=== PATIENT | male | born 1955 | race African-American/Black ===

== ENCOUNTER 2018-11-29 06:17 | Day surgery (SDC) | payer MEDICARE ==
[~2018-11-29 06:17] MED LIST: ANCEF/STERILE WATER 2 GM/20 ML 2 GM/20 ML SYRINGE IV NR; NACL 0.9% 1000 ML 1,000 ML IV SCH
[2018-11-29] MEDS ORDERED: PAPAVERINE ONE (07:32)
[2018-11-29] MEDS ORDERED: PROTAMINE SULFATE ONE (07:32)
[2018-11-29] MEDS ORDERED: XYLOCAINE 1%/ EPI 1:100,000 INFILTRATI ONE (07:33)
[2018-11-29] MEDS ORDERED: MARCAINE-EPI 0.5%-1:200,000 INFILTRATI ONE ×2 (07:33→09:00)
[2018-11-29] MEDS ORDERED: NACL 0.9% 500 ML 500 ML ONE (07:33)
[2018-11-29] MEDS ORDERED: GELFOAM TP ONE ×2 (07:33→09:00)
[2018-11-29] MEDS ORDERED: HEPARIN 10,000 UNITS/10 ML ONE (07:33)
--- NOTE | 2018-11-29 07:33 | Anesthesia Day of Surgery ---
Anesthesia Day of Surgery - Day of Surgery Patient Examined: Yes Patient H&P Reviewed: Yes Patient is NPO: Yes
[2018-11-29] MEDS ORDERED: NITROGLYCERIN SYRINGE 3 ML ONE (07:34)
[2018-11-29] MEDS ORDERED: SODIUM BICARBONATE ONE (07:34)
[2018-11-29] MEDS ORDERED: RIFADIN ONE ×2 (07:34→09:29)
--- NOTE | 2018-11-29 07:41 | Anesthesia Consultation ---
Anesthesia Consult and Med Hx Date of service: 11/29/18 - Airway Anesthetic Teeth Evaluation: Chipped ROM Head & Neck: Adequate Mental/Hyoid Distance: Adequate Mallampati Class: Class III Intubation Access Assessment: Possibly Difficult - Pre-Operative Health Status ASA Pre-Surgery Classification: ASA3 Proposed Anesthetic Plan: General - Pulmonary Hx Smoking: No Hx Asthma: No SOB: No COPD: No Hx Pneumonia: No Hx Sleep Apnea: No - Cardiovascular System Hx Hypertension: Yes Hx Coronary Artery Disease: No Hx Heart Attack/AMI: No Hx Angina: No Hx Percutaneous Transluminal Coronary Angioplasty (PTCA): No Hx Pacemaker: No Hx Internal Defibrillator: No Hx Valvular Heart Disease: No Hx Heart Murmur: No Hx Peripheral Vascular Disease: No - Central Nervous System Hx Seizures: No CVA: Yes (2005. [facility]IC) Hx Psychiatric Problems: No - Gastrointestinal Hx Gastroesophageal Reflux Disease: Yes (Mild) - Endocrine Hx Renal Disease: Yes Hx End Stage Renal Disease: Yes (Last HD yessterday) - Other Systems Hx Cancer: No
[2018-11-29 07:43] LABS: Mean Corpuscular HGB Conc 31 % (32-34); Mean Corpuscular Volume 103 fl (84-94); Platelet Count 173 K/mm3 (140-440); Red Cell Distribution Width 19.3 % (13.2-15.2)
[2018-11-29] MEDS ORDERED: DIPRIVAN 10 MG/ML IV ONE (07:45)
[2018-11-29] MEDS ORDERED: SUBLIMAZE ONE (07:45)
[2018-11-29 07:48] LABS: Calcium 8.9 mg/dL (8.4-10.2)
[2018-11-29] MEDS ORDERED: XYLOCAINE MPF 2% ONE (08:49)
[2018-11-29] MEDS ORDERED: ZOFRAN ONE (08:49)
[2018-11-29] MEDS ORDERED: ROBINUL ONE (08:49)
[2018-11-29] MEDS ORDERED: NEO SYNEPHRINE/NS Syringe(OR USE) IV ONE (08:49)
[2018-11-29] MEDS ORDERED: NACL 0.9% IR ONE ×2 (09:00→09:29)
[2018-11-29] MEDS ORDERED: HEPARIN 10,000 UNITS/10 ML 2,000 UNIT in NACL 0.9% 500 ML 500 ML IR ONE (09:27)
[2018-11-29] MEDS ORDERED: NACL 0.9% 1000 ML ONE (09:29)
[2018-11-29] MEDS ORDERED: RIFADIN IR ONE (09:29)
[2018-11-29 09:54] LABS: Myelocytes # (Manual) 0.1 K/mm3; Promyelocytes # (Manual) 0.1 K/mm3; Total Cells Counted 100
[2018-11-29 09:55] LABS: Anisocytosis 2+; Ovalocytes 1+; Platelet Estimate Consistent w Auto; Poikilocytosis 2+
--- NOTE | 2018-11-29 10:23 | Short Stay Summary ---
Short Stay Documentation Date of service: 11/29/18 - History H&P: obtained from office - Allergies and Medications Current Medications: Allergies ibuprofen [From Advil] Allergy (Verified 11/26/18 14:22) Unknown Home Medications Medication Instructions Recorded Confirmed Last Taken Type Allopurinol 100 mg PO BID 03/27/13 03/27/13 11/28/18 21:00 History Colchicine [Colcrys] 0.06 mg PO QAM 03/27/13 11/29/18 11/28/18 21:00 History Insulin Glargine,Hum.rec.anlog 5 units SQ HS 03/27/13 03/27/13 11/28/18 21:00 History [Lantus] Insulin Regular, Human Inj 03/27/13 03/27/13 11/28/18 21:00 History [NovoLIN R Inj] Megestrol [Megace] 3 tsp PO QAM 03/27/13 03/27/13 11/28/18 21:00 History Sertraline HCl 50 PO HS 03/27/13 03/27/13 11/28/18 21:00 History Sodium Bicarbonate 650 mg PO BID 03/27/13 03/27/13 11/28/18 21:00 History Sodium Citrate [M9] 5 ml PO BID 03/27/13 03/27/13 11/28/18 21:00 History methOCARBAMOL [Robaxin] 500 mg PO BID #30 tab 10/21/13 11/28/18 21:00 Rx traMADol [Ultram 50 MG tab] 50 mg PO Q6HR PRN #20 tablet 10/21/13 11/28/18 09:00 Rx Active Medications Sodium Chloride (Nacl 0.9% 1000 Ml) 1,000 mls @ 42 mls/hr IV DIRECT SUNIL Last Admin: 11/29/18 06:45 Dose: 42 mls/hr Documented by: Cefazolin Sodium (Ancef/Sterile Water 2 Gm/20 Ml) 2 gm in 20 mls @ 80 mls/hr IV PREOP NR; Protocol Stop: 11/29/18 23:59 - Brief post op/procedure progress note Date of procedure: 11/29/18 Pre-op diagnosis: end stage renal failure Post-op diagnosis: same Procedure: Left upper arm brachial artery to axillary vein bridge graft using 6 mm bovine graft Anesthesia: GETA, local Findings: Excellent thrill in the graft at the end of the procedure. 2+ left radial pulse at the end of the procedure. Surgeon: MINESH HURTADO Psych Social Worker: YUVAL SHAH Estimated blood loss: 50-100ml Pathology: none Condition: stable - Hospital course Hospital course: Benign - Disposition Condition at discharge: Good Disposition: DC-01 TO HOME OR SELFCARE Short Stay Discharge Plan Activity: advance as tolerated Diet: advance as tolerated Wound: per your surgeon's advice Follow up with: MINESH HURTADO MD [Staff Physician] - 14 Days Prescriptions: HYDROcodone/APAP 5-325 [[place] 5/325] 1 each PO Q6HR PRN #30 tablet PRN Reason: Pain
--- NOTE | 2018-11-29 10:26 | Operative Report ---
Operative Report Operative Report: Left Upper Extremity Brachial Artery to Axillary Vein Bridge Graft Date of procedure: 11/29/2018 Pre-operative diagnosis: End-stage renal failure Post-operative diagnosis: Same Procedure name(s): Left upper extremity brachial artery to axillary vein bridge graft using 6 mm bovine graft Surgeon: Omar Martinez MD Customer Retention Specialist: Tai FELIZ Anesthesia: Local MAC EBL: Less than 50 mL Operative indication: Patient is a 63-year-old man with end-stage renal failure and need for long-term hemodialysis access. Findings: Excellent thrill in the arteriovenous graft at the end of the procedure. And 2+ left radial pulse. Procedure: The patient was placed on the table in the supine position. The arm was prepped with ChloraPrep solution and draped in the usual sterile fashion. Under local anesthesia, an incision was made just above the elbow. Dissection was carried out to identify the brachial artery. The brachial artery was surrounded with Vesseloops proximally and distally. The brachial artery was approximately 6 mm in diameter. A second incision was made in the axilla and dissection was carried out to identify the axillary vein. This vein was also at least 7 mm in diameter. Vessel loops were placed proximally and distally. The wounds were infiltrated with half percent Marcaine and epinephrine prior to incision. The bovine graft was prepped according to the IFU. A tunnel was created in the upper arm between the 2 incisions using a Carol-Wick tunneler. The graft was anastomosed to the axillary vein in an end to side fashion using running 6-0 Prolene. The arterial anastomosis was completed in an end-to-side fashion. The arteriotomy was approximate 5 mm in length. A Cassidy catheter was used to break the spasm in the brachial artery proximally and distally to the anastomosis. The anastomosis is completed and flow was started into the arteriovenous graft with the development of an immediate and excellent thrill along the body of the graft. The left radial pulse remained palpable. Meticulous hemostasis was obtained. Closure was done with 3-0 Vicryl on the subcutaneous tissues tissue and 4-0 PDS on the subcuticular tissue. Sterile dressings were applied. The patient tolerated the procedure well. There was an easily palpable left radial pulse at the end of the procedure. There was a good thrill in the graft at the end of the procedure. Sponge, needle, and instrument counts were reported as correct. The patient was taken from the operating room to the recovery room in stable condition.
[2018-11-29 11:37] VITALS: BP 110/58
--- NOTE | 2018-11-29 22:26 | Post Anesthesia Evaluation ---
- Post Anesthesia Evaluation Patient Participated: Yes Airway Patent: Yes Stable Respiratory Function: Yes Nausea/Vomiting: No Temp > 96.8F: Yes Pain Manageable: Yes Adequeate Hydration: Yes Anesthesia Complications: No Block Receding Appropriately: Not Applicable Patient on Ventilator: No
== END 2018-11-29 12:10 | disposition home or self-care (01) ==
LOC: OR 06:17
PROVIDERS: ATTEND Surgery Vascular Surgery
DX: I12.0 Hypertensive chronic kidney disease with stage 5 chronic kidney disease or end stage renal disease (principal); E11.22 Type 2 diabetes mellitus with diabetic chronic kidney disease; N18.6 End stage renal disease; M10.9 Gout, unspecified; D64.9 Anemia, unspecified; K21.9 Gastro-esophageal reflux disease without esophagitis; Z98.890 Other specified postprocedural states; Z79.899 Other long term (current) drug therapy; Z79.4 Long term (current) use of insulin; Z88.8 Allergy status to other drugs, medicaments and biological substances; Z86.73 Personal history of transient ischemic attack (TIA), and cerebral infarction without residual deficits
CPT/HCPCS: 36415; 36830; 80048; 82962; 85007; 85025; A4649; J0690; J1644; J2370; J2405; J2704; J3010; J3490; J7030; J7040; C1757; C1768; J2440; J2720